=== PATIENT | male | born 2000 | race African-American/Black ===

== ENCOUNTER → 2018-12-29 13:29 | Outpatient (CLI) | payer OTHER, SELFPAY ==
--- NOTE | 2018-12-29 | DI.RAD.S_ITS ---
PROCEDURE: FL SHOULDER INJECTION MR/CT LT INDICATIONS: Unspecified injury of shoulder and upper arm TECHNIQUE: The indications, alternatives, benefits, risks, and complications of the procedure were explained to the patient. Written informed consent was obtained and placed in the chart. The shoulder was examined fluoroscopically and a site for needle placement chosen for entry into the glenohumeral joint from an anterior approach. The skin was prepped and draped in a sterile fashion, and 1% lidocaine infiltrated from skin down to joint capsule. A spinal needle was inserted into the glenohumeral joint, and a small amount of iodinated contrast media injected to confirm intra-articular placement of the needle tip. This was followed by approximately 12 mL dilute solution of a gadolinium containing MR contrast agent. The needle was removed and a dressing was applied. The patient was given postprocedural instructions and sent to the MR suite for MR imaging. FINDINGS: A single fluoroscopic spot image demonstrates intra-articular location of injected iodinated contrast. IMPRESSION: Successful fluoroscopically guided administration of dilute Gadolinium solution into the shoulder joint for MR arthrogram. Dictated by: Chadd Lubin M.D. on 12/29/2018 at 15:50 Approved by: Chadd Lubin M.D. on 12/29/2018 at 15:51
--- NOTE | 2018-12-29 | DI.MRI.S_ITS ---
PROCEDURE: MR SHOULDER LT W CON INDICATIONS: Unspecified injury of shoulder and upper arm TECHNIQUE: After the administration of 12 mL of dilute intra-articular Gadolinium contrast, oblique coronal T1 and T2 spin echo with fat saturation, oblique sagittal T1 spin echo with and without fat saturation, oblique sagittal T2 fast spin echo with fat saturation, axial T1 spin echo with fat saturation through the shoulder. COMPARISON: None. FINDINGS: Image quality: Excellent. Rotator cuff: The supraspinatus, infraspinatus, subscapularis, and teres minor appear intact. No rotator cuff muscle atrophy on sagittal images. Bones and bursae: There is a mildly depressed impaction fracture of the posterior humeral head consistent with a Hill-Sachs lesion with corresponding bone marrow edema. No discrete bony Bankart fracture identified. No acromioclavicular joint degeneration. The acromion demonstrates conventional anatomy, without an os acromiale. There is trace subacromial/subdeltoid bursal fluid. Capsule and soft tissues: There is an anterosuperior sublabial foramen. Elsewhere, no discrete labral tear identified. The glenohumeral ligaments appear intact. The long head of the biceps tendon demonstrates normal location and morphology. The biceps xiomara appears intact within the rotator interval. The coracohumeral ligament is of normal thickness. No intra-articular bodies. IMPRESSION: 1. Mildly depressed impaction fracture of the posterior humeral head consistent with a Hill-Sachs lesion. No corresponding bony Bankart fracture of the glenoid identified. 2. No definite labral tear. Dictated by: Dayron Mejia M.D. on 12/29/2018 at 16:04 Approved by: Dayron Mejia M.D. on 12/29/2018 at 16:11
== END ==
PROVIDERS: Visit Provider Radiology Diagnostic Radiology
DX: S42.292A Other displaced fracture of upper end of left humerus, initial encounter for closed fracture (principal); X58.XXXA Exposure to other specified factors, initial encounter
CPT/HCPCS: 23350; 73222; 77002

== ENCOUNTER → 2020-09-16 09:18 | Outpatient (CLI) | payer OTHER, SELFPAY ==
[2020-09-16 12:05] LABS: COVID19 -Nasal RAPID Negative (Negative)
== END ==
PROVIDERS: Visit Provider Family Medicine Sleep Medicine
DX: Z01.812 Encounter for preprocedural laboratory examination (principal); Z20.822 Contact with and (suspected) exposure to COVID-19
CPT/HCPCS: 87635; C9803

== ENCOUNTER → 2020-10-13 08:47 | Outpatient (CLI) | payer OTHER, SELFPAY ==
[2020-10-13 12:35] LABS: COVID19 -Nasal RAPID Negative (Negative)
== END ==
PROVIDERS: Visit Provider Family Medicine Sleep Medicine
DX: Z20.822 Contact with and (suspected) exposure to COVID-19 (principal); G47.33 Obstructive sleep apnea (adult) (pediatric); G47.31 Primary central sleep apnea; G47.00 Insomnia, unspecified; G47.19 Other hypersomnia; R06.83 Snoring
CPT/HCPCS: 87635; 95811